=== PATIENT | female | born 1955 | race Caucasian/White ===

== ENCOUNTER 2018-08-09 10:41 | Day surgery (SDC) | payer BC, OTHER ==
[2018-07-26 15:42] VITALS: BMI 24.3
[2018-08-09] MEDS ORDERED: methylPREDNISolone ACET (DEPO) 40 MG/1 ML VIAL ONE (12:09)
[2018-08-09] MEDS ORDERED: LIDOCAINE HCL 1% PRESERVATIVE FREE - 30ML VIAL ONE (12:09)
[2018-08-09] MEDS ORDERED: PROPOFOL 20 ML ONE (13:19)
[2018-08-09] MEDS ORDERED: LIDOCAINE HCL/PF 2% SDV 5ML VIAL ONE (13:20)
[2018-08-09] MEDS ORDERED: MIDAZOLAM HCL 2 MG/2 ML SINGLE DOSE VIAL ONE (13:21)
--- NOTE | 2018-08-09 13:48 | HP ---
Satellite [facility] - Chief Complaint Chief Complaint: right hip pain - Past Medical History Allergies/Adverse Reactions: Allergies Allergy/AdvReac Type Severity Reaction Status Date / Time No Known Allergies Allergy Verified 07/26/18 15:33 - Current Medications Current Medications: Home Medications Medication Instructions Recorded Atorvastatin Ca [Lipitor] 20 mg PO HS 07/26/18 Diazepam [Valium] 5 mg PO DAILY PRN 07/26/18 Satellite Physical Exam - Physical Examination Vital Signs: Vital Signs Period Temp Pulse Resp BP Sys/Otto Pulse Ox Last 24 Hr 97.6 F 76 18 124/80 94 General Appearance: Well Nourished, Well Developed, Alert & Oriented x3 ENT: Clear Lung: Normal air movement Heart: Regular rate & rhythm Extremities: Other (right hip - + ttp, decr rom ,nvi xrays show grade 4 hip djd) Neurological: Intact, Alert, Oriented Satellite Impression/Plan - Impression/Plan Impression: right hip djd Operative Procedure: right hip arthrogram with injection of cortisone Date to be Performed: 08/09/18
--- NOTE | 2018-08-09 13:49 | OP ---
Operative Note - Note: Operative Date: 08/09/18 (patsy) Pre-Operative Diagnosis: right hip djd Operation: right hip arthrogram, injection of cortisone Post-Operative Diagnosis: Same as Pre-op Surgeon: Tarik Barreto Anesthesiologist/CONCRETE HOPPER OPERATOR: Mike Sauceda Anesthesia: Local, MAC Operative Report Dictated: Yes
[2018-08-09 14:53] VITALS: BP 112/66; PULSE 80; TEMP 97.6
--- NOTE | 2018-08-09 20:43 | OP ---
DATE OF OPERATION: 08/09/2018 PREOPERATIVE DIAGNOSIS: Degenerative joint disease, right hip. POSTOPERATIVE DIAGNOSIS: Degenerative joint disease, right hip. PROCEDURE: Right hip arthrogram and injection of cortisone under fluoroscopic guidance. SURGICAL ATTENDING: Tarik Barreto MD ANESTHESIA: IV sedation. DESCRIPTION OF OPERATIVE PROCEDURE: Patient was taken to the operating room on August 09, 2018. IV sedation was administered by the anesthesiologist. The right hip area was prepped and draped in the usual sterile fashion. A spinal needle was inserted in an oblique fashion under fluoroscopic guidance, away from the femoral vascular structures, into the hip joint anteriorly. Once the spinal needle hit the bone and it was suspected that it was inside the capsule, a few milliliters of radiopaque dye was injected and confirmed intraarticular position of the spinal needle. At this time, 80 mg of Depo-Medrol and 8 mL of lidocaine were injected into the hip joint, and the needle was removed. A Band-Aid and compression were placed over the groin region. Patient awakened from anesthesia and transferred to Recovery in stable condition. No complications. Estimated blood loss: Negligible. Violet STONER/[id number]
== END 2018-08-09 14:53 | disposition home or self-care (01) ==
LOC: FASU 10:41
PROVIDERS: ATTEND Orthopaedic Surgery
PROC: BQ00YZZ Plain Radiography of Right Hip using Other Contrast (ICD-10-PCS; 2018-08-09)
PROC: BQ10YZZ Fluoroscopy of Right Hip using Other Contrast (ICD-10-PCS; principal; 2018-08-09 13:37)
DX: M16.11 Unilateral primary osteoarthritis, right hip (principal)
CPT/HCPCS: 73502-TC-RT-FY

== ENCOUNTER 2019-06-06 08:00 | Inpatient (IN) | payer BC, OTHER ==
[2019-05-26 12:54] VITALS: BMI 25.2
[2019-06-06] MEDS ORDERED: MIDAZOLAM HCL 2 MG/2 ML SINGLE DOSE VIAL ONE (09:16)
[2019-06-06] MEDS ORDERED: CELECOXIB 200 MG CAPSULE PO ONE (09:27)
[2019-06-06] MEDS ORDERED: CEFAZOLIN 2 GM in DEXTROSE 5%-WATER - 50 ML IVPB ONE (09:27)
[2019-06-06] MEDS ORDERED: TRANEXAMIC ACID 1000 MG/10 ML VIAL IVPUSH ONE (09:27)
--- NOTE | 2019-06-06 09:44 | HP ---
Satellite [facility] - Chief Complaint Chief Complaint: right hip pain - Past Medical History Allergies/Adverse Reactions: Allergies Allergy/AdvReac Type Severity Reaction Status Date / Time No Known Allergies Allergy Verified 05/26/19 12:43 - Current Medications Current Medications: Home Medications Medication Instructions Recorded Atorvastatin Ca [Lipitor] 20 mg PO HS 07/26/18 Diazepam [Valium] 5 mg PO DAILY PRN 07/26/18 Cholecalciferol (Vitamin D3) 1,000 unit PO DAILY 05/26/19 [Vitamin D3] Satellite Physical Exam - Physical Examination Vital Signs: Vital Signs Period Temp Pulse Resp BP Sys/Otto Pulse Ox Last 24 Hr 98.2 F 76 18 114/74 General Appearance: Well Nourished, Well Developed, Alert & Oriented x3 ENT: Clear Lung: Normal air movement Extremities: Other (right hip - + ttp ,decr rom, nvi, xrays show grade 4 hip djd ) Neurological: Intact, Alert, Oriented Satellite Impression/Plan - Impression/Plan Impression: right hip djd Operative Procedure: right farrah thr Date to be Performed: 06/06/19
[2019-06-06] MEDS ORDERED: VANCOMYCIN 1,000 MG VIAL (RESTRICTED TO ID ONLY) ONE (10:58)
[2019-06-06] MEDS ORDERED: ceFAZolin SODIUM 1 GM VIAL ONE ×2 (10:58→11:19)
[2019-06-06] MEDS ORDERED: ONDANSETRON 4 MG/2 ML VIAL ONE (11:19)
[2019-06-06] MEDS ORDERED: DEXAMETHASONE SOD PHOSPHATE 4 MG/1 ML VIAL ONE (11:19)
[2019-06-06] MEDS ORDERED: VANCOMYCIN 1,000 MG VIAL (RESTRICTED TO ID ONLY) IVPB ONE (12:08)
[2019-06-06] MEDS ORDERED: MAGNESIUM HYDROX 2400MG/30ML ORAL SUSPENSION 30 ML CUP PO PRN (12:44)
[2019-06-06] MEDS ORDERED: MAG HYDROX/AL HYDROX/SIMETH 30 ML UNIT-DOSE CUP PO PRN (12:44)
[2019-06-06] MEDS ORDERED: ONDANSETRON 4 MG/2 ML VIAL IVPUSH PRN (12:44)
[2019-06-06] MEDS ORDERED: LACTATED RINGERS SOLUTION 1,000 ML IV SCH (12:45)
--- NOTE | 2019-06-06 12:46 | OP ---
Operative Note - Note: Operative Date: 06/06/19 (patsy) Pre-Operative Diagnosis: right hip djd Operation: right farrah thr Post-Operative Diagnosis: Same as Pre-op Surgeon: Tarik Barreto Investor Relations Coordinator: Lj Humphreys Anesthesiologist/CYCLE CONSULTANT: Sue Benton Anesthesia: Spinal, Local Specimens Removed: femoral head Estimated Blood Loss (mls): 150
[2019-06-06] MEDS ORDERED: oxyCODONE HCL 5 MG TABLET PO PRN (13:23)
[2019-06-06] MEDS: ACETAMINOPHEN 325 MG TABLET (FP) PO SCH ×3 (13:44→20:26)
--- NOTE | 2019-06-06 16:12 | SPEC ---
DATE OF OPERATION: 06/06/2019 PREOPERATIVE DIAGNOSIS: Degenerative joint disease, right hip. POSTOPERATIVE DIAGNOSIS: Degenerative joint disease, right hip. PROCEDURE PERFORMED: Right total hip replacement with robotic-assisted navigation (MAKOplasty). SURGICAL ATTENDING: Tarik Barreto MD MECHANICAL INTEGRITY SPECIALIST: TIMBO Galicia ANESTHESIA: Regional and spinal. CLOSURE: A Valorie total hip system with a Trident II 52-mm press-fit acetabulum, a number 5 Accolade II press-fit femoral stem, a +5, 36-mm ceramic femoral head, and a polyethylene liner with a 10-degree lip. Number 1 Vicryl for fascia, 0 and 2-0 subcutaneous, 3-0 V-Loc for skin with skin glue, 4-0 undyed Vicryl for pin sites. ESTIMATED BLOOD LOSS: Approximately 100 mL. COMPLICATIONS: None. CONDITION: To the recovery room in stable condition. DESCRIPTION OF PROCEDURE: The patient was taken to the operating room on June 06, 2019. General and regional anesthesia was administered by the anesthesiologist. IV Kefzol and TXA were administered prophylactically prior to the case. The patient was placed in the lateral decubitus position will all prominences well-padded. The right hip area was prepped and draped in the usual sterile fashion. Using 3 small stab incisions over the iliac crest, 3 threaded pins were drilled in power fashion through the 2 tables of the crest. These pins were fastened and the navigation array for the Clif navigation system. Next, a 12 to 15-cm curved longitudinal incision over the posterolateral aspect of the greater trochanter was incised. Hemostasis was achieved with Bovie cautery. Sharp dissection was carried down to level of the fascia. The fascia was opened the entire length of the incision, spreading the fibers of the gluteus jennifer in the direction of origin. A Charnley retractor was placed in this layer. Care was taken not to impale the sciatic nerve. The short external rotators were detached off the insertion of the greater trochanter and peeled off the capsule. A posterior capsulotomy was then performed. A check point was malleted into the greater trochanter and a point on the inferior pole of the patella was obtained as well. These 2 points were used to assess the preoperative offset and limb lengths of the hip. The hip was then dislocated. The femoral neck was then osteotomized down to the appropriate level as directed by the navigation device. Anterior and posterior retractors were placed, exposing the acetabulum. A circumferential labral excision was performed. A check point was malleted into the acetabulum as well. Multiple sites inside the acetabulum and around the rim were utilized to register the acetabulum with the navigation device. An excellent registration of less than 0.5 mm was obtained. The hip was then reamed with the appropriate reamer down to the appropriate depth, with the appropriate orientation and version as assessed on our preoperative plan for this patient. The reamer was removed and the acetabulum was inspected to have good bleeding surfaces throughout. The real acetabular cup was then malleted down into place, with the holes in the appropriate position, until an excellent fixation was obtained. No screws were necessary. The navigation device ensured appropriate orientation and version, with the depth as predetermined. The appropriate liner was then clipped into place. Attention was directed to the femur. The proximal femur was prepared by use a box chisel, a canal finder and serial broaches until the broach achieved excellent rigidity in the proximal femur with the appropriate version being applied. A calcar planer was used to smooth off the calcar flush with the trial components. A trial reduction with the appropriate head was done, and the hip was reduced. The hip was taken through a range of motion from full extension with external rotation to marked flexion and was stable at 90 degrees of flexion. It was stable to marked abduction and internal rotation, with a positive hang test and negative telescoping. Limb lengths were ascertained visually as well as with the navigation device to be within the targeted range for this patient. The trial component was removed. The real component was then malleted into place. The head was cold welded to the trunnion, and the hip was reduced. Range of motion, stability and limb lengths were as described in the trial component. Then the hip was pulse antibiotic irrigated. Vancomycin powder was placed in the hip joint. The capsule was closed. The fascia was then closed as well using number 1 Vicryl interrupted suture, 0 and 2-0 subcutaneous, and 3-0 V-Loc for the skin. 4-0 undyed Vicryl was used to close the pin sites after the pins were removed. All check points were also removed. Sterile Aquacel dressing was applied. The patient was awakened from anesthesia and transferred into the supine position. Bilateral SCDs and an abduction pillow were placed. X-rays revealed excellent position of the components. The patient was transferred to the recovery room in stable condition, with no complications. Estimated blood loss was less than 100 mL. Violet STONER/[id number]
[2019-06-06] MEDS: oxyCODONE HCL 5 MG TABLET PO PRN ×2 (18:03→21:00)
[2019-06-06] MEDS: CEFAZOLIN 2 GM/D5W 2 GM/50 ML ML IVPB SCH (20:00)
[2019-06-06] MEDS: traMADol HCL 50 MG TABLET PO PRN (20:30)
[2019-06-06] MEDS: diazePAM 5 MG TABLET PO PRN (21:26)
[2019-06-06] MEDS: ATORVASTATIN CA 20 MG TABLET (FP) PO SCH (21:27)
[2019-06-06] MEDS: oxyCODONE HCL 10 MG SUSTAINED ACTING TABLET PO SCH (21:27)
[2019-06-06] MEDS: SENNOSIDES/DOCUSATE COMBO (SENNA PLUS) TABLET (UD) PO SCH (21:28)
[2019-06-06] MEDS: LEVOTHYROXINE NA 100 MCG TABLET (FP) PO SCH (21:28)
[2019-06-06] MEDS ORDERED: HYDROmorphone HCL CARPU-JECT 1 MG/1 ML DISP.SYRIN ONE (22:58)
[2019-06-06] MEDS ORDERED: HYDROmorphone HCl 2 MG/ML VIAL IVPB STA (23:10)
[2019-06-07] MEDS: ACETAMINOPHEN 325 MG TABLET (FP) PO SCH ×4 (02:07→19:45)
[2019-06-07] MEDS: oxyCODONE HCL 5 MG TABLET PO PRN ×5 (02:24→21:35)
[2019-06-07] MEDS: CEFAZOLIN 2 GM/D5W 2 GM/50 ML ML IVPB SCH (04:00)
[2019-06-07 08:05] LABS: HEMOGLOBIN 11.8 GM/dl (10.7-15.3); MCH 30.9 pg (25.7-33.7); MCHC 33.6 g/dl (32.0-36.0); MEAN PLT VOLUME 8.9 fl (7.5-11.1); PLATELET COUNT 214 K/MM3 (134-434); RBC 3.81 M/mm3 (3.60-5.2); RDW 12.9 % (11.6-15.6); WHITE BLOOD COUNT 9.2 K/mm3 (4.0-10.8)
[2019-06-07] MEDS: PANTOPRAZOLE 40 MG TABLET (FP) PO SCH (09:00)
[2019-06-07] MEDS: ASPIRIN 325 MG TABLET PO SCH (09:00)
[2019-06-07] MEDS: SENNOSIDES/DOCUSATE COMBO (SENNA PLUS) TABLET (UD) PO SCH ×2 (09:00→21:36)
[2019-06-07] MEDS: CITALOPRAM HYDROBROMIDE 20 MG TABLET (FP) PO SCH (09:32)
[2019-06-07] MEDS: oxyCODONE HCL 10 MG SUSTAINED ACTING TABLET PO SCH ×2 (09:32→21:36)
--- NOTE | 2019-06-07 09:58 | PN ---
Progress Note (short form) - Note Progress Note: Ortho Pt seen and examined s/p right farrah thr pod #1 Selected Entries 06/07/19 06:15 Temperature 98.0 F Pulse Rate 82 Respiratory 18 Rate Blood Pressure 111/52 L Laboratory Tests 06/07/19 07:27 WBC 9.2 Hgb 11.8 Hct 35.0 Plt Count 214 dressing c/d/i, calf soft, nt nvi a/p PT hip precautions dvt ppx pain control d/c home tomorrow if stable
[2019-06-07] MEDS: MULTIVITAMINS (DAILY MVI) TABLET (FP) PO SCH (10:00)
--- NOTE | 2019-06-07 11:08 | PN ---
Progress Note (short form) - Note Progress Note: 63F POD1 s/p R THR under spinal anesthetic with peripheral nerve block for post operative pain. Pt states pain is well controlled and reports no anesthetic complications. AVSS. continue current regimen.
[2019-06-07] MEDS: traMADol HCL 50 MG TABLET PO PRN ×3 (15:53→23:32)
[2019-06-07] MEDS: diazePAM 5 MG TABLET PO PRN (19:39)
[2019-06-07] MEDS: ATORVASTATIN CA 20 MG TABLET (FP) PO SCH (21:36)
[2019-06-08] MEDS: oxyCODONE HCL 5 MG TABLET PO PRN (00:29)
[2019-06-08] MEDS: traMADol HCL 50 MG TABLET PO PRN (03:23)
[2019-06-08] MEDS: ACETAMINOPHEN 325 MG TABLET (FP) PO SCH ×2 (03:23→09:00)
[2019-06-08] MEDS: LEVOTHYROXINE NA 100 MCG TABLET (FP) PO SCH (06:42)
[2019-06-08 07:00] VITALS: BP 111/42; PULSE 105; TEMP 99.3
--- NOTE | 2019-06-08 07:59 | DS ---
Physical Examination Vital Signs: Vital Signs Temperature 99.3 F 06/08/19 06:00 Pulse Rate 105 H 06/08/19 06:00 Respiratory Rate 18 06/08/19 06:00 Blood Pressure 111/42 L 06/08/19 06:00 O2 Sat by Pulse Oximetry (%) 96 06/08/19 06:00 Discharge Summary Problems reviewed: Yes Procedures: Principal: admitted for elective right farrah thr, post-op per protocol, stable for d/c Condition: Good - Instructions Diet, Activity, Other Instructions: Post-op Instructions-Total Hip Replacement Call the office for a follow-up appointment in 1 week - [phone] Aspirin 325mg daily for 6 weeks. Pain medication was sent into your pharmacy. Apply Graduated Compression Stockings (TEDs) to both lower extremities- remove daily for hygiene ONLY Apply Sequential Compression Device (SCDs) to both Lower extremities remove for PT and hygiene ONLY Apply cold packs to affected area for 15 minutes every 2 hours. Physical Therapist will come to your home for the first 5 days. You will be set up with outpatient PT at your first post-operative visit. Patient may ambulate as tolerated-encourage self care (at least every 2-3 hours while awake) with walker or cane Maintain Aquacel (waterproof) dressing to operative wound (will be removed by surgeon at first office visit) Shower with Aquacel dressing in place-if Aquacel integrity compromised, remove and apply dry sterile dressing and notify Orthopedist. DO NOT SHOWER unless Orthopedists approves without Aquacel dressing CONTACT THE OFFICE FOR ANY CHANGE IN YOUR CONDITION (for example-fever greater than 102 degrees, excessive bleeding from operative site, purulent drainage, severe swelling or pain) GO TO THE EMERGENCY ROOM IF THERE IS A MEDICAL EMERGENCY Hip Precautions: * Keep a rolled towel under affected heel while in bed or chair (to keep knee in extension) * Dependent upon approach: * Posterior - do not cross legs; do not sit on low chairs or toilets. * If you have any questions, please do not hesitate to call the office - [phone]. Referrals: Tarik Barreto MD [Staff Physician] - Disposition: VNS/HOME HEALTH CARE - Home Medications Comprehensive Discharge Medication List: Ambulatory Orders Atorvastatin Ca [Lipitor] 20 mg PO HS 07/26/18 Diazepam [Valium] 5 mg PO DAILY PRN 07/26/18 Cholecalciferol (Vitamin D3) [Vitamin D3] 1,000 unit PO DAILY 05/26/19
--- NOTE | 2019-06-08 07:59 | PN ---
Progress Note (short form) - Note Progress Note: Ortho Pt seen and examined s/p right farrah thr pod #2 Selected Entries 06/08/19 06:00 Temperature 99.3 F Pulse Rate 105 H Respiratory 18 Rate Blood Pressure 111/42 L Laboratory Tests 06/08/19 07:25 WBC Pending Hgb Pending Hct Pending Plt Count Pending dressing c/d/i, calf soft, nt nvi a/p PT hip precautions dvt ppx pain control d/c home today f/u in 1 week
[2019-06-08 08:00] LABS: HEMATOCRIT 33.7 % (32.4-45.2); HEMOGLOBIN 11.3 GM/dl (10.7-15.3); MCH 30.7 pg (25.7-33.7); MCHC 33.5 g/dl (32.0-36.0); MEAN CELL VOLUME 91.5 fl (80-96); MEAN PLT VOLUME 8.7 fl (7.5-11.1); PLATELET COUNT 211 K/MM3 (134-434); RBC 3.68 M/mm3 (3.60-5.2); RDW 12.9 % (11.6-15.6); WHITE BLOOD COUNT 9.5 K/mm3 (4.0-10.8)
[2019-06-08] MEDS: MULTIVITAMINS (DAILY MVI) TABLET (FP) PO SCH (09:00)
[2019-06-08] MEDS: oxyCODONE HCL 10 MG SUSTAINED ACTING TABLET PO SCH (09:00)
[2019-06-08] MEDS: PANTOPRAZOLE 40 MG TABLET (FP) PO SCH (09:00)
[2019-06-08] MEDS: CITALOPRAM HYDROBROMIDE 20 MG TABLET (FP) PO SCH (09:00)
[2019-06-08] MEDS: SENNOSIDES/DOCUSATE COMBO (SENNA PLUS) TABLET (UD) PO SCH (09:00)
[2019-06-08] MEDS: ASPIRIN 325 MG TABLET PO SCH (09:30)
--- NOTE | 2019-06-12 14:03 | PATH ---
Surgical Pathology Report Patient Name: LETICIA LUTZ Med. Rec. #: [id number] /Age/Gender: 1955 (Age: 63) / F Account: [id number] Location: [facility] MED-SURG Taken: 06/06/2019 Received: 06/06/2019 Reported: 06/12/2019 Physicians: Tarik Barreto M.D. Specimen(s) Received RIGHT FEMORAL HEAD Clinical History Right hip osteoarthritis Final Diagnosis FEMORAL HEAD, RIGHT, TOTAL HIP REPLACEMENT: DEGENERATIVE JOINT DISEASE. Electronically Signed Monica Fraire M.D. Gross Description Received in formalin, labeled "right femoral head," is a 4.6 x 4.6 x 4.5 cm. femoral head with a 0.8 cm in length portion of femoral neck attached. The margin of resection is smooth. There is a 2.5 cm in greatest dimension area of eburnation present. The remaining articular surface is dover-yellow and diffusely granular. The underlying trabecular bone is yellow and hard. A dermatology sales representative section is submitted in one cassette, following decalcification. 06/09/2019 [facility]06/09/2019
== END 2019-06-08 14:06 | disposition home health service (06) | DRG 470 ==
LOC: FM/S 09:07
PROVIDERS: ADMIT Orthopaedic Surgery; ATTEND Orthopaedic Surgery
PROC: 8E0W0CZ Robotic Assisted Procedure of Trunk Region, Open Approach (ICD-10-PCS; 2019-06-06)
PROC: 0SR903A Replacement of Right Hip Joint with Ceramic Synthetic Substitute, Uncemented, Open Approach (ICD-10-PCS; principal; 2019-06-06 11:34)
DX: M16.11 Unilateral primary osteoarthritis, right hip (principal)
CPT/HCPCS: 36415; 73502-TC-RT-FY; 85027; 88304-TC; 88311-TC; 94760; 97116-GP; 97163-GP

== ENCOUNTER 2022-12-15 12:23 | Observation (INO) | payer OTHER ==
[2022-12-15 12:38] VITALS: BMI 25.8
[2022-12-15] MEDS ORDERED: ACETAMINOPHEN 1000 MG/100 ML BAG IVPB ONE (12:55)
[2022-12-15] MEDS ORDERED: MAG HYDROX/AL HYDROX/SIMETH 30 ML UNIT-DOSE CUP PO ONE (12:55)
[2022-12-15] MEDS ORDERED: FAMOTIDINE 20 MG/50 ML IVPB 20 MG/50 ML MG IVPB ONE ×2 (12:55→13:10)
[2022-12-15] MEDS ORDERED: LACTATED RINGERS SOLUTION 1000 ML INFUS.BAG IV ONE (12:56)
[2022-12-15] MEDS ORDERED: ACETAMINOPHEN INJECTION 100 ML IVPB ONE (13:11)
[2022-12-15] MEDS ORDERED: MAG HYDROX/AL HYDROX/SIMETH 30 ML UNIT-DOSE CUP ONE (13:11)
[2022-12-15 13:22] LABS: INR 1.13 (0.83-1.09); PROTHROMBIN TIME (PATIENT) 13.1 SEC (9.7-13.0)
[2022-12-15 13:23] LABS: HEMATOCRIT 41.7 % (32.4-45.2); HEMOGLOBIN 14.3 G/dL (10.7-15.3); MCH 31.5 pg (25.7-33.7); MCHC 34.2 g/dl (32.0-36.0); MEAN PLT VOLUME 8.3 fl (7.5-11.1); PLATELET COUNT 266.4 10^3/uL (134-434); RBC 4.53 10^6/uL (3.60-5.2); RDW 13.9 % (11.6-15.6); WHITE BLOOD COUNT 12.2 10^3/uL (4.0-10.8)
[2022-12-15 13:24] LABS: ACTIVATED PTT 32.9 SECONDS (25.2-36.5)
[2022-12-15 13:29] LABS: PLATELET ESTIMATE ADEQUATE
[2022-12-15 13:33] LABS: EPITHELIAL CELLS FEW /hpf
[2022-12-15 13:34] LABS: ALBUMIN 4.3 g/dl (3.4-5.0); BILIRUBIN,TOTAL 0.8 mg/dl (0.2-1); BLOOD UREA NITROGEN 13.2 mg/dl (7-18); CREATININE 0.8 mg/dl (0.6-1.3); POTASSIUM 4.2 mmol/L (3.5-5.1); SGOT/AST 38.5 U/L (15-37); SGPT/ALT 49.6 U/L (7-52); TOT PROT 6.6 g/dl (6.4-8.2)
[2022-12-15] MEDS ORDERED: PIPERACILLIN/TAZOB 4.5 GM 4.5 GM in DEXTROSE 5%-WATER 100 ML IVPB ONE (16:19)
[2022-12-15] MEDS ORDERED: CEFTRIAXONE 1,000 MG in DEXTROSE 5%-WATER - 50 ML IVPB ONE (16:19)
[2022-12-15] MEDS ORDERED: PIPERACILLIN/TAZOBACTAM 4.5 GM VIAL IVPB ONE (16:25)
[2022-12-15] MEDS ORDERED: morphine SULFATE 4 MG/ML VIAL IVPUSH ONE (18:48)
[2022-12-15] MEDS ORDERED: morphine SULFATE 4 MG/ML VIAL ONE (19:00)
[2022-12-15] MEDS ORDERED: DOCUSATE SODIUM 100 MG CAPSULE (FP) PO PRN (20:37)
[2022-12-15] MEDS ORDERED: ACETAMINOPHEN 1000 MG/100 ML BAG IVPB PRN (20:42)
[2022-12-15] MEDS ORDERED: morphine SULFATE 4 MG/ML VIAL IVPUSH PRN (20:42)
[2022-12-15] MEDS ORDERED: DEXTROSE 5%-NORMAL SALINE 1,000 ML IV SCH (20:45)
[2022-12-16] MEDS: PIPERACILLIN/TAZOB 3.375 GM 3.375 GM in DEXTROSE 5%-WATER - 50 ML IVPB SCH ×3 (00:16→16:18)
[2022-12-16] MEDS: INSULIN SLIDING SCALE (NOVOLOG) 1 VIAL SQ SCH ×5 (00:24→22:41)
[2022-12-16] MEDS ORDERED: PIPERACILLIN/TAZOBACTAM 3.375 GM VIAL IVPB ONE ×2 (04:26→10:15)
[2022-12-16] MEDS ORDERED: LEVOTHYROXINE NA 112 MCG TABLET (FP) PO SCH (07:00)
[2022-12-16] MEDS ORDERED: BUPIVACAINE HCL/PF 0.5% (5MG/ML) 10 ML VIAL ONE (08:46)
[2022-12-16] MEDS ORDERED: BUPIVACAINE HCL/PF 0.25% (2.5MG/ML) 10 ML VIAL ONE (08:46)
[2022-12-16 09:48] LABS: BASO % 0.5 % (0-2.0); EOS % 0.4 % (0-4.5); HEMATOCRIT 38.9 % (32.4-45.2); HEMOGLOBIN 12.8 GM/dL (10.7-15.3); LYMPH % 9.2 % (8-40); MCH 29.9 pg (25.7-33.7); MCHC 32.9 g/dl (32.0-36.0); MEAN CELL VOLUME 90.9 fl (80-96); MEAN PLT VOLUME 9.3 fl (7.5-11.1); MONO % 11.4 % (3.8-10.2); NEUT % 78.5 % (42.8-82.8); PLATELET COUNT 287 10^3/uL (134-434); RBC 4.28 M/mm3 (3.60-5.2); RDW 13.9 % (11.6-15.6); WHITE BLOOD COUNT 7.4 K/mm3 (4.0-10.0)
[2022-12-16] MEDS ORDERED: KETOROLAC TROMETHAMINE 30 MG/1 ML VIAL ONE (09:51)
[2022-12-16] MEDS ORDERED: ROCURONIUM BROMIDE 50 MG/5 ML SYRINGE ONE ×2 (09:51→11:27)
[2022-12-16] MEDS ORDERED: ONDANSETRON 4 MG/2 ML VIAL ONE (09:51)
[2022-12-16] MEDS ORDERED: DEXAMETHASONE SOD PHOSPHATE 4 MG/1 ML VIAL ONE (09:51)
[2022-12-16] MEDS ORDERED: MIDAZOLAM HCL 2 MG/2 ML SINGLE DOSE VIAL ONE (09:51)
[2022-12-16] MEDS ORDERED: PROPOFOL 20 ML ONE (09:51)
[2022-12-16] MEDS ORDERED: LIDOCAINE HCL/PF 2% SDV 5ML VIAL ONE (09:51)
[2022-12-16] MEDS ORDERED: LIDOCAINE HCL 1%, 10 MG/ML (10ML VIAL) MDV ONE (09:59)
[2022-12-16] MEDS ORDERED: CHOLECALCIFEROL (VIT D3) 1,000 UNIT (25 MCG) TABLET PO SCH (10:00)
[2022-12-16] MEDS ORDERED: CITALOPRAM HYDROBROMIDE 20 MG TABLET PO SCH (10:00)
[2022-12-16] MEDS ORDERED: ACETAMINOPHEN INJECTION 100 ML IVPB ONE (10:01)
[2022-12-16 10:07] LABS: POTASSIUM 4.4 mmol/L (3.5-5.1)
[2022-12-16 10:16] LABS: BLOOD UREA NITROGEN 10.2 mg/dL (7-18); MAGNESIUM 2.2 mg/dL (1.8-2.4)
[2022-12-16 10:17] LABS: CALCIUM 8.7 mg/dL (8.5-10.1)
[2022-12-16 10:19] LABS: PHOSPHOROUS 2.9 mg/dL (2.5-4.9)
[2022-12-16 10:20] LABS: CREATININE 0.7 mg/dL (0.55-1.3)
[2022-12-16] MEDS ORDERED: BUPIVACAINE HCL/PF 0.5% (5 MG/ML) 30 ML VIAL IJ ONE ×2 (10:25)
[2022-12-16] MEDS ORDERED: LIDOCAINE HCL 1%, 10 MG/ML (20ML VIAL) NR ONE ×2 (10:25)
[2022-12-16] MEDS ORDERED: SUGAMMADEX SODIUM 200 MG/2 ML VIAL ONE (10:55)
[2022-12-16] MEDS ORDERED: ONDANSETRON 4 MG/2 ML VIAL IVPUSH PRN ×2 (12:32→13:09)
[2022-12-16] MEDS ORDERED: LACTATED RINGERS SOLUTION 1,000 ML IV SCH ×2 (12:45→13:09)
[2022-12-16] MEDS ORDERED: ACETAMINOPHEN 325 MG TABLET (FP) PO PRN (13:09)
[2022-12-16] MEDS ORDERED: DOCUSATE SODIUM 100 MG CAPSULE (FP) PO PRN (13:09)
[2022-12-16] MEDS ORDERED: ACETAMINOPHEN 1000 MG/100 ML BAG IVPB PRN (13:09)
[2022-12-16] MEDS ORDERED: oxyCODONE HCL 5 MG TABLET PO PRN (13:43)
[2022-12-16] MEDS: DEXTROSE 5%-NORMAL SALINE 1,000 ML IV SCH (14:15)
[2022-12-16] MEDS ORDERED: INSULIN (NOVOLOG) ASPART 100 UNITS/ML 10ML VIAL ONE ×2 (17:39→19:15)
[2022-12-16] MEDS: morphine SULFATE 4 MG/ML VIAL IVPUSH PRN (18:04)
[2022-12-16] MEDS: ATORVASTATIN CA 20 MG TABLET (FP) PO SCH (21:22)
[2022-12-16] MEDS ORDERED: ATORVASTATIN CA 20 MG TABLET (FP) PO SCH (22:00)
[2022-12-17] MEDS: morphine SULFATE 4 MG/ML VIAL IVPUSH PRN ×2 (02:28→09:43)
[2022-12-17] MEDS: DEXTROSE 5%-NORMAL SALINE 1,000 ML IV SCH ×2 (05:59→13:00)
[2022-12-17] MEDS: INSULIN SLIDING SCALE (NOVOLOG) 1 VIAL SQ SCH ×4 (06:19→22:43)
[2022-12-17] MEDS: LEVOTHYROXINE NA 112 MCG TABLET (FP) PO SCH (06:20)
[2022-12-17] MEDS ORDERED: oxyCODONE HCL 5 MG TABLET PO PRN (09:33)
[2022-12-17] MEDS ORDERED: ACETAMINOPHEN 1000 MG/100 ML BAG IVPB SCH (10:00)
[2022-12-17] MEDS: CITALOPRAM HYDROBROMIDE 20 MG TABLET PO SCH (10:27)
[2022-12-17 12:29] LABS: BASO % 0.2 % (0-2.0); EOS % 0.2 % (0-4.5); HEMATOCRIT 33.1 % (32.4-45.2); HEMOGLOBIN 10.8 GM/dL (10.7-15.3); LYMPH % 11.1 % (8-40); MCH 29.9 pg (25.7-33.7); MCHC 32.6 g/dl (32.0-36.0); MEAN CELL VOLUME 91.7 fl (80-96); MEAN PLT VOLUME 8.6 fl (7.5-11.1); NEUT % 79.5 % (42.8-82.8); PLATELET COUNT 280 10^3/uL (134-434); RBC 3.61 M/mm3 (3.60-5.2); RDW 13.6 % (11.6-15.6)
[2022-12-17] MEDS: CHOLECALCIFEROL (VIT D3) 1,000 UNIT (25 MCG) TABLET PO SCH (12:39)
[2022-12-17 12:56] LABS: POTASSIUM 3.8 mmol/L (3.5-5.1)
[2022-12-17 13:00] LABS: BLOOD UREA NITROGEN 4.7 mg/dL (7-18); CALCIUM 7.9 mg/dL (8.5-10.1)
[2022-12-17 13:03] LABS: CREATININE 0.5 mg/dL (0.55-1.3)
[2022-12-17 13:04] LABS: BILIRUBIN,TOTAL 0.5 mg/dL (0.2-1)
[2022-12-17 13:16] LABS: ALBUMIN 2.6 g/dl (3.4-5.0); TOT PROT 5.2 g/dl (6.4-8.2)
[2022-12-17] MEDS: PIPERACILLIN/TAZOB 3.375 GM 3.375 GM in DEXTROSE 5%-WATER - 50 ML IVPB SCH ×2 (17:47→17:51)
[2022-12-17] MEDS: oxyCODONE HCL 5 MG TABLET PO PRN (19:47)
[2022-12-17] MEDS: ATORVASTATIN CA 20 MG TABLET (FP) PO SCH (22:31)
[2022-12-17] MEDS: IBUPROFEN 600 MG TABLET (FP) PO PRN (22:32)
[2022-12-18] MEDS: oxyCODONE HCL 5 MG TABLET PO PRN ×4 (05:54→20:10)
[2022-12-18] MEDS: INSULIN SLIDING SCALE (NOVOLOG) 1 VIAL SQ SCH ×4 (06:54→22:13)
[2022-12-18] MEDS: LEVOTHYROXINE NA 112 MCG TABLET (FP) PO SCH (06:55)
[2022-12-18 09:18] LABS: BASO % 0.5 % (0-2.0); EOS % 1.6 % (0-4.5); HEMATOCRIT 33.4 % (32.4-45.2); HEMOGLOBIN 11.3 GM/dL (10.7-15.3); LYMPH % 16.6 % (8-40); MCH 30.4 pg (25.7-33.7); MCHC 33.8 g/dl (32.0-36.0); MEAN CELL VOLUME 89.8 fl (80-96); MONO % 10.7 % (3.8-10.2); NEUT % 70.6 % (42.8-82.8); PLATELET COUNT 292 10^3/uL (134-434); RBC 3.71 M/mm3 (3.60-5.2); RDW 13.9 % (11.6-15.6); WHITE BLOOD COUNT 8.1 K/mm3 (4.0-10.0)
[2022-12-18 09:42] LABS: POTASSIUM 4.1 mmol/L (3.5-5.1)
[2022-12-18] MEDS: CHOLECALCIFEROL (VIT D3) 1,000 UNIT (25 MCG) TABLET PO SCH (09:43)
[2022-12-18] MEDS: CITALOPRAM HYDROBROMIDE 20 MG TABLET PO SCH (09:44)
[2022-12-18 09:49] LABS: ALBUMIN 2.6 g/dl (3.4-5.0); BLOOD UREA NITROGEN 6.3 mg/dL (7-18); CALCIUM 8.1 mg/dL (8.5-10.1)
[2022-12-18 09:52] LABS: CREATININE 0.5 mg/dL (0.55-1.3)
[2022-12-18 09:53] LABS: BILIRUBIN,TOTAL 0.4 mg/dL (0.2-1); TOT PROT 5.3 g/dl (6.4-8.2)
[2022-12-18] MEDS: DEXTROSE 5%-NORMAL SALINE 1,000 ML IV SCH (14:22)
[2022-12-18] MEDS: ATORVASTATIN CA 20 MG TABLET (FP) PO SCH (22:11)
[2022-12-18] MEDS: IBUPROFEN 600 MG TABLET (FP) PO PRN (22:24)
[2022-12-19] MEDS: LEVOTHYROXINE NA 112 MCG TABLET (FP) PO SCH (07:02)
[2022-12-19] MEDS: INSULIN SLIDING SCALE (NOVOLOG) 1 VIAL SQ SCH ×2 (07:02→13:22)
[2022-12-19 07:33] VITALS: TEMP 97.5
[2022-12-19 09:09] LABS: HEMATOCRIT 34.3 % (32.4-45.2); HEMOGLOBIN 11.1 GM/dL (10.7-15.3); MCH 29.5 pg (25.7-33.7); MCHC 32.3 g/dl (32.0-36.0); MEAN CELL VOLUME 91.4 fl (80-96); MEAN PLT VOLUME 8.4 fl (7.5-11.1); PLATELET COUNT 339 10^3/uL (134-434); RBC 3.76 M/mm3 (3.60-5.2); RDW 13.8 % (11.6-15.6)
[2022-12-19 09:26] LABS: POTASSIUM 4.7 mmol/L (3.5-5.1)
[2022-12-19 09:29] LABS: CALCIUM 8.5 mg/dL (8.5-10.1)
[2022-12-19 09:31] LABS: ALBUMIN 2.5 g/dl (3.4-5.0); BLOOD UREA NITROGEN 8.9 mg/dL (7-18)
[2022-12-19 09:35] LABS: CREATININE 0.6 mg/dL (0.55-1.3); TOT PROT 5.4 g/dl (6.4-8.2)
[2022-12-19 09:37] LABS: BILIRUBIN,TOTAL 0.4 mg/dL (0.2-1)
[2022-12-19] MEDS: oxyCODONE HCL 5 MG TABLET PO PRN (10:53)
[2022-12-19] MEDS: CHOLECALCIFEROL (VIT D3) 1,000 UNIT (25 MCG) TABLET PO SCH (10:53)
[2022-12-19] MEDS: CITALOPRAM HYDROBROMIDE 20 MG TABLET PO SCH (10:54)
[2022-12-19] MEDS ORDERED: POLYETHYLENE GLYCOL (HEALTHYLAX) 3350 17 GM PACKET PO ONE ×2 (11:00→13:15)
[2022-12-19] MEDS: DEXTROSE 5%-NORMAL SALINE 1,000 ML IV SCH (13:24)
[2022-12-19 14:57] VITALS: BP 111/60; PULSE 68; RESP 18
== END 2022-12-19 03:30 | disposition home or self-care (01) ==
LOC: FER 12:23 → J8W 23:40 → UNDOADMIN 23:40 → JASUSAT 12-16 11:31 → J8W 12-16 11:54
PROVIDERS: ADMIT Family Medicine; ATTEND Family Medicine
PROC: 0FT44ZZ Resection of Gallbladder, Percutaneous Endoscopic Approach (ICD-10-PCS; principal; 2022-12-18)
DX: R10.9 Unspecified abdominal pain (principal); R73.03 Prediabetes; E78.5 Hyperlipidemia, unspecified; K59.00 Constipation, unspecified; Z85.850 Personal history of malignant neoplasm of thyroid; K81.0 Acute cholecystitis; R10.11 Right upper quadrant pain
CPT/HCPCS: 36415; 71045-TC-FY; 74177-TC; 76705-TC; 80048; 80053; 81003; 81015; 82248; 82962; 83605; 83690; 83735; 84100; 84443; 85025; 85027; 85610; 85730; 86850; 86900; 86901; 87086; 88304-TC; 93005; 94010; 94760; 99285-25; G0378; Q9967